=== PATIENT | female | born 1980 | race Caucasian/White ===

== ENCOUNTER 2018-10-11 11:02 | Emergency (ER) | payer OTHER ==
[~2018-10-11] VITALS: Ht 162.6 cm; Wt 81.7 kg
[~2018-10-11 11:02] MED LIST: ACET325 PO; ALPR.5; Advil200 M1; CLARITIN10 MG; DAILY MULTIPLE1 EACH; Excedrin Extra1 EACH; Excedrin Extra1 EACH PO; HYDACE5 PO; HYDR1TAB94 PO; IBUPROFEN200 MG PO; LORA10; NAPR220 PO; NAPR500 PO
[2018-10-11] MEDS ORDERED: Ultram50 MG PO (11:46)
[2018-10-11] MEDS ORDERED: Robaxin-750750 MG PO (11:46)
== END 2018-10-11 11:52 | disposition home or self-care (01) ==
LOC: ER 11:02
DX: M54.41 Lumbago with sciatica, right side (principal); Z88.0 Allergy status to penicillin
CPT/HCPCS: 99282; A9270-GY; J1885

== ENCOUNTER → 2019-12-05 | Outpatient (CLI) | payer OTHER ==
[~2019-12-05] MED LIST changes: +Robaxin-750750 MG PO; +Ultram50 MG PO
== END | disposition home or self-care (01) ==
LOC: LAB EV 09:35 → LAB SHORT 09:35
DX: N39.0 Urinary tract infection, site not specified (principal)
CPT/HCPCS: 87086

== ENCOUNTER → 2019-12-08 | Outpatient (CLI) | payer OTHER ==
[2019-12-10 16:18] LABS: CORONAVIRUS (COVID19) CSH-NRL Positive (Negative)
== END | disposition home or self-care (01) ==
LOC: LAB EV 17:37 → LAB SHORT 17:37
PROVIDERS: General Practice
DX: U07.1 COVID-19 (principal)
CPT/HCPCS: U0003

== ENCOUNTER 2022-05-20 09:16 | Day surgery (SDC) | payer OTHER ==
[~2022-05-20] VITALS: Ht 162.6 cm; Wt 97.1 kg
[2022-05-20] MEDS ORDERED: GABA300 PO (09:42)
--- NOTE | 2022-05-20 10:43 | NUR ---
05/20/22 1043 Luci De La Cruz ROPIVACAINE 0.5% 20 MLS MIXED W/ EPI 0.10 ML (1MG/ML) PER ORDER TO MAKE ROPIVACAINE 0.5% 1:200,000 FOR INJECTION AT OPSITE BY DR RAMOS.
[2022-05-20 12:08] VITALS: BP 110/81
== END 2022-05-20 12:48 | disposition home or self-care (01) ==
LOC: ORSCSDS 09:16
PROVIDERS: Orthopaedic Surgery
PROC: 0SBC4ZZ Excision of Right Knee Joint, Percutaneous Endoscopic Approach (ICD-10-PCS; principal; 2022-05-20 10:45)
DX: S83.231A Complex tear of medial meniscus, current injury, right knee, initial encounter (principal); E66.9 Obesity, unspecified; Z68.36 Body mass index [BMI] 36.0-36.9, adult; Z79.899 Other long term (current) drug therapy
CPT/HCPCS: A9270; J0171; J1100; J1885; J2370; J2405; J2704; J2795; J3010; J7120